=== PATIENT | male | born 1995 | race Caucasian/White ===

== ENCOUNTER 2016-12-06 23:12 | Emergency (ER) | payer OTHER ==
--- NOTE | 2016-12-06 23:59 | EDM.PDOC ---
ED HPI Trauma - General Chief Complaint: Trauma Stated Complaint: FELL AT WORK, LADDER HIT HEAD-WC Time Seen by Provider: 12/06/16 23:45 Source: Reports: Patient History Limitations: Reports: No limitations - History of Present Illness INITIAL COMMENTS - FREE TEXT/NARRATIVE: This 21 yo male patient reports to the ED with right posterior neck and right posterior head pain. 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 He was on a latter (feet were at about 5 feet and his head was at about 10 feet) when he lost his balance and fell to the ground. The patient reports he fell to the ground on his chest with his face down and was hit on the back of the head and neck by the ladder. The patient believes that he may have lost consciousness for "1-2 seconds" after the fall. The patient reports he has pain in hit head, neck and right knee due to the incident. The patient reports he as not taken anything at this time for temporary symptom relief. Symptom Onset Date: 12/06/16 Occurred When: just prior to arrival Occurred Where: work Method of Injury: fall Severity: moderate Pain/Injury Location: Reports: head, neck Consciousness: Reports: brief (seconds), remembers incident, remembers coming to hosp Associated Symptoms: Reports: no other symptoms Allergies/ADRs: Allergies Bleach (Sodium Hypochlorite) Allergy (Verified 12/06/16 23:26) Cannot Remember venom-honey bee [bee venom (honey bee)] Allergy (Verified 09/06/16 22:37) Anaphylactic Shock 09/12/14 patient states "very bad hives" Home Medications: Ambulatory Orders . [No Known Home Meds] 12/14/15 [Confirmed 09/06/16] Past Medical History - Past Health History Medical/Surgical History: Denies Medical/Surgical History HEENT History: Reports: None Cardiovascular History: Reports: Other (see below) Other Cardiovascular History: fluid around heart Respiratory History: Reports: Other (see below) Other Respiratory History: pleurisy hx Gastrointestinal History: Reports: GERD Genitourinary History: Reports: None Musculoskeletal History: Reports: Fracture Other Musculoskeletal History: right knee pain, chronic Neurological History: Reports: Concussion, Seizure Psychiatric History: Reports: Anxiety, Depression Endocrine/Metabolic History: Reports: Other (see below) Other Endocrine/Metabolic History: alopecia Hematologic History: Reports: None Immunologic History: Reports: None Oncologic (Cancer) History: Reports: None Dermatologic History: Reports: Other (see below) Other Dermatologic History: alopecia - Infectious Disease History Infectious Disease History: Reports: None - Past Surgical History Head Surgeries/Procedures: Reports: None HEENT Surgical History: Reports: Tonsillectomy GI Surgical History: Reports: None Male Surgical History: Reports: None Neurological Surgical History: Reports: None Musculoskeletal Surgical History: Reports: None Social & Family History - Family History Family Medical History: Noncontributory - Tobacco Use Smoking Status *Q: Current Every Day Smoker Years of Tobacco use: 8 Packs/Tins Daily: 0.5 Used Tobacco, but Quit: No Month Tobacco Last Used: may Second Hand Smoke Exposure: Yes - Caffeine Use Caffeine Use: Reports: None - Alcohol Use Days Per Week of Alcohol Use: 7 Number of Drinks Per Day: 1 Total Drinks Per Week: 7 - Recreational Drug Use Recreational Drug Use: No Recreational Drug Type: Reports: Marijuana/Hashish - Living Situation & Occupation Living situation: Reports: single, with family Occupation: student Review of Systems - Review of Systems Review Of Systems: See Below Constitutional: Reports: no symptoms Eyes: Reports: no symptoms Ears: Reports: no symptoms Nose: Reports: no symptoms Mouth/Throat: Reports: no symptoms Respiratory: Reports: no symptoms Cardiovascular: Reports: no symptoms GI/Abdominal: Reports: No symptoms Genitourinary: Reports: no symptoms Musculoskeletal: Reports: neck pain (right posterior neck), other (right posterior head) Skin: Reports: no symptoms Neurological: Reports: no symptoms Psychiatric: Reports: no symptoms ED EXAM, TRAUMA (MAJOR/MULTI) - Physical Exam Exam: See Below Exam Limited By: No limitations General Appearance: alert, WD/WN, moderate distress Head: scalp tenderness (right posterior scalp) Eyes: bilateral eye: EOMI, normal inspection, PERRL Ears: normal external exam, normal canal, hearing grossly normal, normal TMs Nose: normal inspection, normal mucousa, no blood Throat/Mouth: Normal inspection, Normal lips, Normal teeth, Normal gums, Normal oropharynx, Normal voice, No airway compromise Neck: painful range of motion, tenderness (right posterior) Cardiovascular: normal peripheral pulses, regular rate, rhythm, no edema, no gallop, no JVD, no murmur, no rub Respiratory/Chest: no respiratory distress, lungs clear, normal breath sounds, no accessory muscle use, chest non-tender GI/Abdominal: normal bowel sounds, soft, non tender, no organomegaly, no distention, no abnormal bruit, no mass (Male) Exam: Deferred Rectal (Males) Exam: Deferred Back: full range of motion, normal inspection Extremities: other (abrasion below right knee) 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, no motor/sensory deficits, alert, normal mood/affect, oriented x 3 Skin: Normal color, Warm/dry - [place] Coma Score Best Eye Response ([place]): (4) open spontaneously Best Verbal Response ([place]): (5) oriented Best Motor Response ([place]): (6) obeys commands [place] Total: 15 Course - Orders/Labs/Meds Orders: Active Orders 24 hr Category Date Time Status Cervical Spine wo Cont [CT] Urgent Exams 12/06/16 23:26 Taken Head wo Cont [CT] Urgent Exams 12/06/16 23:26 Taken Ketorolac [Toradol] Med 12/07/16 00:15 Once 60 mg IM ONETIME ONE Departure - Departure Time of Disposition: 00:15 Disposition: Home, Self-Care 01 Condition: fair Clinical Impression: Contusion of face, scalp and neck Qualifiers: Encounter type: initial encounter Qualified Code(s): S00.83XA - Contusion of other part of head, initial encounter; S00.03XA - Contusion of scalp, initial encounter; S10.93XA - Contusion of unspecified part of neck, initial encounter Instructions: Contusion, [id number] Forms: ED Department Discharge Care Plan Goals: The patient was advised of the examination and CT results during the visit. The patient was given an injection of Toradol while in the ED for pain control. The patient may take Tylenol as directed for temporary symptom relief. If the patient has any additional symptoms or concerns, the patient should follow-up with his primary care facility or return to the emergency department. - My Orders Last 24 Hours: My Active Orders 12/06/16 23:26 Cervical Spine wo Cont [CT] Urgent Head wo Cont [CT] Urgent 12/07/16 00:15 Ketorolac [Toradol] 60 mg IM ONETIME ONE - Assessment/Plan Last 24 Hours: My Active Orders 12/06/16 23:26 Cervical Spine wo Cont [CT] Urgent Head wo Cont [CT] Urgent 12/07/16 00:15 Ketorolac [Toradol] 60 mg IM ONETIME ONE
[2016-12-07] MEDS ORDERED: Ketorolac 30 MG/ML SDV IM ONE (00:15)
--- NOTE | 2016-12-07 08:11 | CT ---
Clinical history: 21-year-old male who experienced loss of consciousness and now neck pain after a f all onto cement (5-10 feet). TECHNIQUE: Volume acquisition of data emergency unenhanced CT scan of the cervical spine obtained wi th the patient lying supine on the Siemens multi slice CT scanner [place], [place]. All data archived in the PACS system for storage, reformatting axial/sagittal/coronal planes and study. Interpretation: Negative exam. Homogeneous normal bone density and normal height/alignment of the 7 cervical vertebrae. No sign of congenital abnormality or of pathologic skeletal lesion. No prevertebral soft tissue swelling, cervical fracture, spondylolisthesis or abnormal intervertebra l disc space narrowing. No hypertrophic arthritic spurring. Medial clavicles unremarkable. Lung apices are clear.
== END 2016-12-07 00:43 | disposition home or self-care (01) ==
LOC: DL.ED 23:12
DX: S00.83XA Contusion of other part of head, initial encounter (principal); W11.XXXA Fall on and from ladder, initial encounter; Z91.030 Bee allergy status; Z91.048 Other nonmedicinal substance allergy status; K21.9 Gastro-esophageal reflux disease without esophagitis; M54.2 Cervicalgia
CPT/HCPCS: 70450; 72125; 96372; 99284; J1885

== ENCOUNTER 2017-04-19 15:15 | Emergency (ER) | payer OTHER ==
[2017-04-19] MEDS ORDERED: methylPREDNISolone Sodium Succinate 125 MG/2 ML SDV IVPUSH ONE (15:20)
[2017-04-19] MEDS ORDERED: diphenhydrAMINE 50 MG/ML SDV IVPUSH ONE (15:20)
[2017-04-19 15:24] VITALS: BP 116/80
--- NOTE | 2017-04-19 15:49 | EDM.PDOC ---
ED HPI GENERAL MEDICAL PROBLEM - General Stated Complaint: ALLERGIC REACTION TO BEE STING, [id number] Time Seen by Provider: 04/19/17 15:35 Source of Information: Reports: Patient History Limitations: Reports: No Limitations - History of Present Illness INITIAL COMMENTS - FREE TEXT/NARRATIVE: This 21 yo male patient reports to the ED with a bee sting to his left thumb. After the bee sting, the patient reports experiencing difficulties breathing. The patient reports he used to have an epi pen, but it . The patient has not taken anything at this time. Onset: Today Onset Date: 04/19/17 Onset Time: 15:00 Duration: Constant Location: Reports: Neck Quality: Reports: Dull, Pressure Severity: Moderate Improves with: Reports: None Worsens with: Reports: None Associated Symptoms: Reports: No Other Symptoms Throat Pain Score (Numeric/FACES): 4 - Related Data Allergies Allergy/AdvReac Type Severity Reaction Status Date / Time Bleach (Sodium Hypochlorite) Allergy Cannot Verified 04/19/17 15:36 Remember venom-honey bee Allergy Anaphylactic Verified 04/19/17 15:36 [bee venom (honey bee)] Shock Home Meds: Home Meds . [No Known Home Meds] 12/14/15 [History] Past Medical History - Past Health History Medical/Surgical History: Denies Medical/Surgical History HEENT History: Reports: None Cardiovascular History: Reports: Other (See Below) Other Cardiovascular History: fluid around heart Respiratory History: Reports: Other (See Below) Other Respiratory History: pleurisy hx Gastrointestinal History: Reports: GERD Genitourinary History: Reports: None Musculoskeletal History: Reports: Fracture Other Musculoskeletal History: right knee pain, chronic Neurological History: Reports: Concussion, Seizure Psychiatric History: Reports: Anxiety, Depression Endocrine/Metabolic History: Reports: Other (See Below) Other Endocrine/Metabolic History: alopecia Hematologic History: Reports: None Immunologic History: Reports: None Oncologic (Cancer) History: Reports: None Dermatologic History: Reports: Other (See Below) Other Dermatologic History: alopecia - Infectious Disease History Infectious Disease History: Reports: None - Past Surgical History Head Surgeries/Procedures: Reports: None HEENT Surgical History: Reports: Tonsillectomy GI Surgical History: Reports: None Male Surgical History: Reports: None Neurological Surgical History: Reports: None Musculoskeletal Surgical History: Reports: None Social & Family History - Family History Family Medical History: Noncontributory - Tobacco Use Smoking Status *Q: Current Every Day Smoker Years of Tobacco use: 6 Packs/Tins Daily: 1 Used Tobacco, but Quit: No Month Tobacco Last Used: may Second Hand Smoke Exposure: Yes - Caffeine Use Caffeine Use: Reports: Soda - Alcohol Use Days Per Week of Alcohol Use: 2 Number of Drinks Per Day: 5 Total Drinks Per Week: 10 - Recreational Drug Use Recreational Drug Use: No Recreational Drug Type: Reports: Marijuana/Hashish - Living Situation & Occupation Living situation: Reports: Single, with Family Occupation: Student ED ROS ALLERGIC REACTION - Review of Systems Review Of Systems: ROS reveals no pertinent complaints other than HPI. ED EXAM GENERAL NO PERIP PULSE - Physical Exam Exam: See Below Exam Limited By: No Limitations General Appearance: Alert, WD/WN, Anxious, Mild Distress Eye Exam: Bilateral Eye: EOMI, Normal Inspection, PERRL Ears: Normal External Exam, Normal Canal, Hearing Grossly Normal, Normal TMs Nose: Normal Inspection, Normal Mucosa, No Blood Throat/Mouth: Normal Inspection, Normal Lips, Normal Teeth, Normal Gums, Normal Oropharynx, Normal Voice, No Airway Compromise Head: Atraumatic, Normocephalic Neck: Normal Inspection, Supple, Non-Tender, Full Range of Motion Respiratory/Chest: No Respiratory Distress, Lungs Clear, Normal Breath Sounds, No Accessory Muscle Use, Chest Non-Tender Cardiovascular: Normal Peripheral Pulses, Regular Rate, Rhythm, No Edema, No Gallop, No JVD, No Murmur, No Rub GI/Abdominal: Normal Bowel Sounds, Soft, Non-Tender, No Organomegaly, No Distention, No Abnormal Bruit, No Mass (Male) Exam: Deferred Rectal (Males) Exam: Deferred Back Exam: Normal Inspection, Full Range of Motion, NT Extremities: Normal Inspection, Normal Range of Motion, Non-Tender, Normal Capillary Refill, No Pedal Edema Neurological: Alert, Oriented, CN II-XII Intact, Normal Cognition, Normal Gait, Normal Reflexes, No Motor/Sensory Deficits Psychiatric: Normal Affect, Normal Mood Skin Exam: Warm, Dry, Intact, Normal Color, No Rash Lymphatic: No Adenopathy Course - Vital Signs Last Recorded V/S: Last Vital Signs Temp 36.6 C 04/19/17 15:23 Pulse 82 04/19/17 15:23 Resp 18 04/19/17 15:23 BP 116/80 04/19/17 15:23 Pulse Ox 99 04/19/17 15:23 - Orders/Labs/Meds Meds: Medications Discontinued Medications Generic Name Dose Route Start Last Admin Trade Name Stan PRN Reason Stop Dose Admin Diphenhydramine HCl 50 mg 04/19/17 15:20 04/19/17 15:20 Benadryl IVPUSH 04/19/17 15:21 50 mg ONETIME ONE Administration Methylprednisolone Sodium Succinate 125 mg 04/19/17 15:20 04/19/17 15:20 Solu-Medrol IVPUSH 04/19/17 15:21 125 mg ONETIME ONE Administration Departure - Departure Time of Disposition: 15:46 Disposition: Home, Self-Care 01 Condition: Fair Clinical Impression: Bee sting allergy Angio-edema Qualifiers: Encounter type: initial encounter Qualified Code(s): T78.3XXA - Angioneurotic edema, initial encounter - Discharge Information Instructions: Bee, Wasp, or Hornet Sting, Anaphylactic Reaction, Jyek-ld-Afwn Forms: ED Department Discharge Care Plan Goals: The patient was advised of the examination results during the visit. The patient was given IV Benadryl and IV SoluMedrol while in the ED. The patient was discharged with a script for Prednisone (20 mg) #8 to take 2 by mouth daily for 4 days. The patient should follow-up with his primary care care provider for continued evaluation and further treatment. If the patient has any additional symptoms or concerns, the patient should follow-up with her primary care facility or return to the emergency department.
== END 2017-04-19 15:57 | disposition home or self-care (01) ==
LOC: DL.ED 15:15
DX: T63.441A Toxic effect of venom of bees, accidental (unintentional), initial encounter (principal); T78.3XXA Angioneurotic edema, initial encounter; Z91.030 Bee allergy status; K21.9 Gastro-esophageal reflux disease without esophagitis; Z98.890 Other specified postprocedural states; F17.210 Nicotine dependence, cigarettes, uncomplicated
CPT/HCPCS: 96374; 96375; 99282; J1200; J2930

== ENCOUNTER 2017-06-27 00:58 | Emergency (ER) | payer OTHER ==
[2017-06-27 01:13] VITALS: BP 132/74
[2017-06-27] MEDS ORDERED: GI Cocktail Oral Solution 30 ML PO ONE (01:17)
--- NOTE | 2017-06-27 01:19 | EDM.PDOC ---
ED HPI GENERAL MEDICAL PROBLEM - General Chief Complaint: Gastrointestinal Problem Stated Complaint: CHEST PAINS [id number] Time Seen by Provider: 06/27/17 01:17 Source of Information: Reports: Patient History Limitations: Reports: No Limitations - History of Present Illness INITIAL COMMENTS - FREE TEXT/NARRATIVE: 2 hours h/o epiG pain, was watching Tv. ate nothing prior. Epigastric Pain Score (Numeric/FACES): 6 - Related Data Allergies Allergy/AdvReac Type Severity Reaction Status Date / Time Bleach (Sodium Hypochlorite) Allergy Cannot Verified 06/27/17 01:09 Remember venom-honey bee Allergy Anaphylactic Verified 06/27/17 01:09 [bee venom (honey bee)] Shock Home Meds: Home Meds QUEtiapine [SEROquel] 1 tab PO BEDTIME 06/27/17 [History] Past Medical History - Past Health History Medical/Surgical History: Denies Medical/Surgical History HEENT History: Reports: None Cardiovascular History: Reports: Other (See Below) Other Cardiovascular History: fluid around heart Respiratory History: Reports: Other (See Below) Other Respiratory History: pleurisy hx Gastrointestinal History: Reports: GERD Genitourinary History: Reports: None Musculoskeletal History: Reports: Fracture Other Musculoskeletal History: right knee pain, chronic Neurological History: Reports: Concussion, Seizure Psychiatric History: Reports: Anxiety, Depression Endocrine/Metabolic History: Reports: Other (See Below) Other Endocrine/Metabolic History: alopecia Hematologic History: Reports: None Immunologic History: Reports: None Oncologic (Cancer) History: Reports: None Dermatologic History: Reports: Other (See Below) Other Dermatologic History: alopecia - Infectious Disease History Infectious Disease History: Reports: None - Past Surgical History Head Surgeries/Procedures: Reports: None HEENT Surgical History: Reports: Tonsillectomy GI Surgical History: Reports: None Male Surgical History: Reports: None Neurological Surgical History: Reports: None Musculoskeletal Surgical History: Reports: None Social & Family History - Family History Family Medical History: Noncontributory - Tobacco Use Smoking Status *Q: Current Every Day Smoker Years of Tobacco use: 7 Packs/Tins Daily: 0.5 Used Tobacco, but Quit: No Month Tobacco Last Used: may Second Hand Smoke Exposure: No - Caffeine Use Caffeine Use: Reports: Coffee, Soda - Alcohol Use Days Per Week of Alcohol Use: 2 Number of Drinks Per Day: 5 Total Drinks Per Week: 10 - Recreational Drug Use Recreational Drug Use: No Recreational Drug Type: Reports: Marijuana/Hashish - Living Situation & Occupation Living situation: Reports: Single, with Family Occupation: Student ED ROS GENERAL - Review of Systems Review Of Systems: ROS reveals no pertinent complaints other than HPI. ED EXAM, GI/ABD - Physical Exam Exam: See Below Exam Limited By: No Limitations General Appearance: Alert, WD/WN, Mild Distress, Other (discomfort) Ears: Hearing Grossly Normal Throat/Mouth: Normal Voice, No Airway Compromise Head: Atraumatic Neck: Non-Tender, Full Range of Motion Respiratory/Chest: No Respiratory Distress Cardiovascular: Regular Rate, Rhythm GI/Abdominal Exam: Soft, Tender, Other (epiG region). No: Distended, Guarding, Rigid, Rebound Neurological: Alert, Oriented, Normal Cognition, Normal Gait, No Motor/Sensory Deficits Psychiatric: Tearful Skin Exam: Warm, Dry, Normal Color Lymphatic: No Adenopathy Course - Vital Signs Last Recorded V/S: Last Vital Signs Temp 36.8 C 06/27/17 01:12 Pulse 108 H 06/27/17 01:12 Resp 18 06/27/17 01:12 BP 132/74 06/27/17 01:12 Pulse Ox 100 06/27/17 01:12 - Orders/Labs/Meds Orders: Active Orders 24 hr Category Date Time Status CULTURE STREP A CONFIRMATION [] Stat Lab 06/27/17 01:38 Results STREP SCRN A RAPID W CULT CONF [] Stat Lab 06/27/17 01:38 Results Meds: Medications Discontinued Medications Generic Name Dose Route Start Last Admin Trade Name Corkyq PRN Reason Stop Dose Admin Al Hydroxide/Mg Hydroxide 30 ml 06/27/17 01:17 06/27/17 01:29 Gi Cocktail PO 06/27/17 01:18 30 ml ONETIME ONE Administration - Re-Assessments/Exams Free Text/Narrative Re-Assessment/Exam: 06/27/17 01:41 s/p GI cocktail = minimal, but c/o feeling shaky chills flu like. Departure - Departure Time of Disposition: 02:29 Disposition: Home, Self-Care 01 Condition: Good Clinical Impression: Flu syndrome - Discharge Information Instructions: Influenza, Adult, [id number] Forms: ED Department Discharge Additional Instructions: 1) rest and sleep 2) take tylenol or motrin for fever and body aches - My Orders Last 24 Hours: My Active Orders 06/27/17 01:38 CULTURE STREP A CONFIRMATION [RM] Stat STREP SCRN A RAPID W CULT CONF [] Stat - Assessment/Plan Last 24 Hours: My Active Orders 06/27/17 01:38 CULTURE STREP A CONFIRMATION [RM] Stat STREP SCRN A RAPID W CULT CONF [RM] Stat
== END 2017-06-27 02:36 | disposition home or self-care (01) ==
LOC: DL.ED 00:58
DX: J11.1 Influenza due to unidentified influenza virus with other respiratory manifestations (principal); K21.9 Gastro-esophageal reflux disease without esophagitis; F32.9 Major depressive disorder, single episode, unspecified; F17.210 Nicotine dependence, cigarettes, uncomplicated; Z98.890 Other specified postprocedural states; Z91.030 Bee allergy status; Z91.048 Other nonmedicinal substance allergy status
CPT/HCPCS: 87081; 87430; 87804; 99284; A9270; 99283

== ENCOUNTER 2017-07-24 18:48 | Emergency (ER) | payer SELFPAY ==
[2017-07-24 19:00] VITALS: BP 121/73
--- NOTE | 2017-07-24 19:25 | EDM.PDOC ---
ED HPI GENERAL MEDICAL PROBLEM - General Chief Complaint: Genitourinary Problem Stated Complaint: BLOOD IN URINE AND UPSET STOMACH [id number] Time Seen by Provider: 07/24/17 19:14 Source of Information: Reports: Patient History Limitations: Reports: No Limitations - History of Present Illness INITIAL COMMENTS - FREE TEXT/NARRATIVE: c/o urgency all day. had bilat flank pain for awhile. Bilateral Lower Flank Pain Score (Numeric/FACES): 5 - Related Data Allergies Allergy/AdvReac Type Severity Reaction Status Date / Time Bleach (Sodium Hypochlorite) Allergy Cannot Verified 07/24/17 18:56 Remember venom-honey bee Allergy Anaphylactic Verified 07/24/17 18:56 [bee venom (honey bee)] Shock Home Meds: Home Meds QUEtiapine [SEROquel] 1 tab PO BEDTIME 06/27/17 [History] Amoxicillin/Potassium Clav [Amox-Clav 250-125 mg Tablet] 1 tab PO BID 07/24/17 [ History] Past Medical History - Past Health History Medical/Surgical History: Denies Medical/Surgical History HEENT History: Reports: None Cardiovascular History: Reports: Other (See Below) Other Cardiovascular History: fluid around heart Respiratory History: Reports: Other (See Below) Other Respiratory History: pleurisy hx Gastrointestinal History: Reports: GERD Genitourinary History: Reports: None Musculoskeletal History: Reports: Fracture Other Musculoskeletal History: right knee pain, chronic Neurological History: Reports: Concussion, Seizure Psychiatric History: Reports: Anxiety, Depression Endocrine/Metabolic History: Reports: Other (See Below) Other Endocrine/Metabolic History: alopecia Hematologic History: Reports: None Immunologic History: Reports: None Oncologic (Cancer) History: Reports: None Dermatologic History: Reports: Other (See Below) Other Dermatologic History: alopecia - Infectious Disease History Infectious Disease History: Reports: None - Past Surgical History Head Surgeries/Procedures: Reports: None HEENT Surgical History: Reports: Tonsillectomy GI Surgical History: Reports: None Male Surgical History: Reports: None Neurological Surgical History: Reports: None Musculoskeletal Surgical History: Reports: None Social & Family History - Family History Family Medical History: Noncontributory - Tobacco Use Smoking Status *Q: Current Every Day Smoker Years of Tobacco use: 7 Packs/Tins Daily: 1 Used Tobacco, but Quit: No Month Tobacco Last Used: may Second Hand Smoke Exposure: Yes - Caffeine Use Caffeine Use: Reports: Soda Caffeine Use Comment: states occassional usage - Alcohol Use Days Per Week of Alcohol Use: 2 Number of Drinks Per Day: 5 Total Drinks Per Week: 10 - Recreational Drug Use Recreational Drug Use: No Recreational Drug Type: Reports: Marijuana/Hashish - Living Situation & Occupation Living situation: Reports: Single, with Family Occupation: Student ED ROS GENERAL - Review of Systems Review Of Systems: ROS reveals no pertinent complaints other than HPI. ED EXAM, RENAL/ - Physical Exam Exam: See Below Exam Limited By: No Limitations General Appearance: Alert, WD/WN, Anxious, Other (distraught) Eye Exam: Bilateral Eye: PERRL (pupils ER @ 4mm) Ears: Hearing Grossly Normal Throat/Mouth: Normal Voice, No Airway Compromise Head: Atraumatic Neck: Non-Tender, Full Range of Motion Respiratory/Chest: No Respiratory Distress Cardiovascular: Regular Rate, Rhythm GI/Abdominal: Soft, Tender, Other (general discomfort). No: Distended, Guarding , Rigid, Rebound Neurological: Alert, Oriented, Normal Cognition, Normal Gait, No Motor/Sensory Deficits Psychiatric: Flat Affect Skin Exam: Warm, Dry, Normal Color Lymphatic: No Adenopathy Course - Vital Signs Last Recorded V/S: Last Vital Signs Temp 37.6 C 07/24/17 18:58 Pulse 107 H 07/24/17 18:58 Resp 20 07/24/17 18:58 BP 121/73 07/24/17 18:58 Pulse Ox 97 07/24/17 18:58 - Orders/Labs/Meds Labs: Laboratory Tests 07/24/17 Range/Units 18:52 Urine Color Dark yellow (YELLOW) Urine Appearance Slightly cloudy (CLEAR) Urine pH 6.0 (5.0-9.0) Ur Specific [place] 1.025 (1.005-1.030) Urine Protein 30 H (NEGATIVE) Urine Glucose (UA) Negative (NEGATIVE) Urine Ketones Trace H (NEGATIVE) Urine Occult Blood Negative (NEGATIVE) Urine Nitrite Negative (NEGATIVE) Urine Bilirubin Small H (NEGATIVE) Urine Urobilinogen 1.0 (0.2-1.0) mg/dL Ur Leukocyte Esterase Negative (NEGATIVE) Urine RBC 0-5 /HPF Urine WBC 5-10 H (0-5/HPF) /HPF Ur Epithelial Cells Rare /HPF Urine Bacteria Moderate H (0-FEW/HPF) /HPF Urine Mucus Many H /LPF - Re-Assessments/Exams Free Text/Narrative Re-Assessment/Exam: 07/24/17 19:25 results discussed with pt. Departure - Departure Time of Disposition: 19:26 Disposition: Home, Self-Care 01 Condition: Good Clinical Impression: UTI, Urinary tract infectious disease - Discharge Information Instructions: Urinary Tract Infection, Adult, [id number] Additional Instructions: 1) stop the current antibiotic and take the new one 2) drink lots of liquids 3) see clinic Wednesday for UROLOGY REFERRAL for UTI. rx given; keflex 250mg qid x 40
[2017-07-24] MEDS ORDERED: Cephalexin 250 MG Cap PO ONE (19:26)
== END 2017-07-24 19:36 | disposition home or self-care (01) ==
LOC: DL.ED 18:48
DX: N39.0 Urinary tract infection, site not specified (principal); K21.9 Gastro-esophageal reflux disease without esophagitis; F17.210 Nicotine dependence, cigarettes, uncomplicated; Z91.030 Bee allergy status; Z91.048 Other nonmedicinal substance allergy status
CPT/HCPCS: 81001; 99283; A9270

== ENCOUNTER 2018-04-24 01:02 | Emergency (ER) | payer BC, OTHER ==
--- NOTE | 2018-04-24 01:12 | EDM.PDOC ---
ED HPI GENERAL MEDICAL PROBLEM - General Chief Complaint: Upper Extremity Injury/Pain Stated Complaint: POSSIBLE BROKEN ARM [id number] Time Seen by Provider: 04/24/18 01:10 Source of Information: Reports: Patient History Limitations: Reports: No Limitations - History of Present Illness INITIAL COMMENTS - FREE TEXT/NARRATIVE: hit by the bar door tonight Right Lower Arm Pain Score (Numeric/FACES): 6 - Related Data Allergies Allergy/AdvReac Type Severity Reaction Status Date / Time Bleach (Sodium Hypochlorite) Allergy Cannot Verified 07/24/17 18:56 Remember venom-honey bee Allergy Anaphylactic Verified 07/24/17 18:56 [bee venom (honey bee)] Shock Home Meds: Home Meds . [No Known Home Meds] 02/04/18 [History] Past Medical History - Past Health History Medical/Surgical History: Denies Medical/Surgical History HEENT History: Reports: None Cardiovascular History: Reports: Other (See Below) Other Cardiovascular History: fluid around heart Respiratory History: Reports: Other (See Below) Other Respiratory History: pleurisy hx Gastrointestinal History: Reports: GERD Genitourinary History: Reports: None Musculoskeletal History: Reports: Fracture Other Musculoskeletal History: right knee pain, chronic Neurological History: Reports: Concussion, Seizure Psychiatric History: Reports: Anxiety, Depression Endocrine/Metabolic History: Reports: Other (See Below) Other Endocrine/Metabolic History: alopecia Hematologic History: Reports: None Immunologic History: Reports: None Oncologic (Cancer) History: Reports: None Dermatologic History: Reports: Other (See Below) Other Dermatologic History: alopecia - Infectious Disease History Infectious Disease History: Reports: None - Past Surgical History Head Surgeries/Procedures: Reports: None HEENT Surgical History: Reports: Tonsillectomy GI Surgical History: Reports: None Male Surgical History: Reports: None Neurological Surgical History: Reports: None Musculoskeletal Surgical History: Reports: None Social & Family History - Family History Family Medical History: Noncontributory - Caffeine Use Caffeine Use: Reports: Soda Caffeine Use Comment: states occassional usage - Living Situation & Occupation Living situation: Reports: Single, with Family Occupation: Student Review of Systems - Review of Systems Review Of Systems: ROS reveals no pertinent complaints other than HPI. ED EXAM, GENERAL - Physical Exam Exam: See Below Exam Limited By: No Limitations General Appearance: Alert, WD/WN, No Apparent Distress Ears: Hearing Grossly Normal Throat/Mouth: Normal Voice, No Airway Compromise Head: Atraumatic Neck: Non-Tender, Full Range of Motion Respiratory/Chest: No Respiratory Distress Cardiovascular: Regular Rate, Rhythm GI/Abdominal: Soft, Non-Tender Extremities: Other (right forearm tender swollen, NV wnl) Neurological: Alert, Oriented, Normal Cognition, Normal Gait, No Motor/Sensory Deficits Psychiatric: Normal Affect, Normal Mood Skin Exam: Warm, Dry, Normal Color Lymphatic: No Adenopathy Course - Vital Signs Last Recorded V/S: Last Vital Signs Temp 37.2 C 04/24/18 01:09 Pulse 106 H 04/24/18 01:09 Resp 18 04/24/18 01:09 BP 137/74 04/24/18 01:09 Pulse Ox 98 04/24/18 01:09 - Orders/Labs/Meds Orders: Active Orders 24 hr Category Date Time Status Forearm 2V Rt [CR] Urgent Exams 04/24/18 01:12 Ordered Departure - Departure Time of Disposition: 02:55 Disposition: Home, Self-Care 01 Condition: Good Clinical Impression: Forearm contusion Qualifiers: Encounter type: initial encounter Laterality: right Qualified Code(s): S50.11XA - Contusion of right forearm, initial encounter - Discharge Information Instructions: Contusion, [id number] Forms: ED Department Discharge Additional Instructions: 1) avoid excess use right arm next 24 hours 2) take tylenol or motrin as needed for pain 3) recheck as needed - My Orders Last 24 Hours: My Active Orders 04/24/18 01:12 Forearm 2V Rt [CR] Urgent - Assessment/Plan Last 24 Hours: My Active Orders 04/24/18 01:12 Forearm 2V Rt [CR] Urgent
[2018-04-24 01:20] VITALS: BP 137/74
== END 2018-04-24 03:05 | disposition home or self-care (01) ==
LOC: DL.ED 01:02
DX: S50.11XA Contusion of right forearm, initial encounter (principal); Z91.030 Bee allergy status; Z88.8 Allergy status to other drugs, medicaments and biological substances; W22.8XXA Striking against or struck by other objects, initial encounter
CPT/HCPCS: 73090-RT; 99283

== ENCOUNTER 2018-06-13 22:12 | Emergency (ER) | payer SELFPAY | END 2018-06-13 22:54 | disposition left against medical advice (07) | LOC: DL.ED 22:12 | DX: Z53.21 Procedure and treatment not carried out due to patient leaving prior to being seen by health care provider (principal) ==

== ENCOUNTER 2018-10-14 07:12 | Emergency (ER) | payer BC ==
[2018-10-14 07:56] VITALS: BP 131/75
--- NOTE | 2018-10-14 08:14 | EDM.PDOC ---
ED HPI GENERAL MEDICAL PROBLEM - General Chief Complaint: ENT Problem Stated Complaint: SICK [id number] Time Seen by Provider: 10/14/18 08:10 Source of Information: Reports: Patient, RN, RN Notes Reviewed History Limitations: Reports: No Limitations - History of Present Illness INITIAL COMMENTS - FREE TEXT/NARRATIVE: Pt c/o sore throat x3 weeks with 1 weeks duration of subjective fever and chills. Admits to plugged ears and muffled hearing, dry cough, and sinus pain x 3 weeks. Pt states he has had "sinus headaches" for about 2 months. His roommate tested positive for strep throat yesterday. Duration: Week(s): (3) Location: Reports: Other (Throat) Quality: Reports: Ache, Burning Severity: Moderate Improves with: Reports: None Worsens with: Reports: None Associated Symptoms: Reports: No Other Symptoms Throat Pain Score (Numeric/FACES): 5 - Related Data Allergies Allergy/AdvReac Type Severity Reaction Status Date / Time Bleach (Sodium Hypochlorite) Allergy Cannot Verified 10/14/18 07:54 Remember hydrocodone Allergy Nausea Verified 10/14/18 07:54 venom-honey bee Allergy Anaphylactic Verified 10/14/18 07:54 [bee venom (honey bee)] Shock Home Meds: Home Meds . [No Known Home Meds] 02/04/18 [History] Past Medical History - Past Health History Medical/Surgical History: Denies Medical/Surgical History HEENT History: Reports: None Cardiovascular History: Reports: Other (See Below) Other Cardiovascular History: fluid around heart Respiratory History: Reports: Other (See Below) Other Respiratory History: pleurisy hx Gastrointestinal History: Reports: GERD Genitourinary History: Reports: None Musculoskeletal History: Reports: Fracture Other Musculoskeletal History: right knee pain, chronic Neurological History: Reports: Concussion, Seizure Psychiatric History: Reports: Anxiety, Depression Endocrine/Metabolic History: Reports: Obesity/BMI 30+, Other (See Below) Other Endocrine/Metabolic History: alopecia Hematologic History: Reports: None Immunologic History: Reports: None Oncologic (Cancer) History: Reports: None Dermatologic History: Reports: Other (See Below) Other Dermatologic History: alopecia - Infectious Disease History Infectious Disease History: Reports: None - Past Surgical History Head Surgeries/Procedures: Reports: None HEENT Surgical History: Reports: Tonsillectomy GI Surgical History: Reports: None Male Surgical History: Reports: None Neurological Surgical History: Reports: None Musculoskeletal Surgical History: Reports: None Social & Family History - Family History Family Medical History: Noncontributory - Tobacco Use Smoking Status *Q: Current Every Day Smoker Years of Tobacco use: 6 Packs/Tins Daily: 1 - Caffeine Use Caffeine Use: Reports: Coffee, Energy Drinks, Soda, Tea Caffeine Use Comment: states occassional usage - Recreational Drug Use Recreational Drug Use: No - Living Situation & Occupation Living situation: Reports: Single, with Family Occupation: Student ED ROS ENT - Review of Systems Review Of Systems: ROS reveals no pertinent complaints other than HPI. ED EXAM, ENT - Physical Exam Exam: See Below Exam Limited By: No Limitations General Appearance: Alert, WD/WN, No Apparent Distress Eye Exam: Bilateral Eye: Normal Inspection Ears: Normal External Exam, Normal Canal, Hearing Grossly Normal, TM Dullness (B /L) Nose: Normal Mucousa, No Blood, Nasal Discharge, Injected Turbinates Mouth/Throat: Normal Gums, Normal Lips, Normal Teeth, Pharyngeal Erythema. No: Tonsillar Exudates, Tonsillar Swelling, Uvular Deviation, Uvular Edema Head: Atraumatic, Normocephalic Neck: Normal Inspection, Supple, Non-Tender, Full Range of Motion Respiratory/Chest: No Respiratory Distress, Lungs Clear, Normal Breath Sounds, No Accessory Muscle Use, Chest Non-Tender Cardiovascular: Regular Rate, Rhythm GI/Abdominal: Normal Bowel Sounds, Soft, Non-Tender, No Distention Back: Normal Inspection Extremities: Normal Inspection Neurological: Alert, Oriented, CN II-XII Intact, Normal Cognition, No Motor/ Sensory Deficits Psychiatric: Normal Affect, Normal Mood Skin: Warm, Dry, Intact, Normal Color, No Rash Course - Vital Signs Last Recorded V/S: Last Vital Signs Temp 36.4 C 10/14/18 07:54 Pulse 98 10/14/18 07:54 Resp 16 10/14/18 07:54 BP 131/75 10/14/18 07:54 Pulse Ox 97 10/14/18 07:54 - Orders/Labs/Meds Orders: Active Orders 24 hr Category Date Time Status CULTURE STREP A CONFIRMATION [] Stat Lab 10/14/18 07:50 Results STREP SCRN A RAPID W CULT CONF [RM] Stat Lab 10/14/18 07:50 Results - Radiology Interpretation Free Text/Narrative:: Rapid Strep: negative Departure - Departure Time of Disposition: 08:27 Disposition: Home, Self-Care 01 Condition: Good Clinical Impression: Sinusitis Qualifiers: Sinusitis location: pansinusitis Chronicity: acute Recurrence: non-recurrent Qualified Code(s): J01.40 - Acute pansinusitis, unspecified Pharyngitis Qualifiers: Pharyngitis/tonsillitis etiology: other specified organisms Qualified Code(s): J02.8 - Acute pharyngitis due to other specified organisms - Discharge Information *PRESCRIPTION DRUG MONITORING PROGRAM REVIEWED*: Not Applicable *COPY OF PRESCRIPTION DRUG MONITORING REPORT IN PATIENT TASHI: Not Applicable Instructions: Sinusitis, Adult, Yzvo-[id number], Pharyngitis, [id number] Forms: ED Department Discharge Additional Instructions: Rx: Amoxicillin 500mg Rx: Loratadine D-24HR Frequent saltwater gargles until improved. Follow up in clinic if not better in one week. - My Orders Last 24 Hours: My Active Orders 10/14/18 07:50 CULTURE STREP A CONFIRMATION [RM] Stat STREP SCRN A RAPID W CULT CONF [RM] Stat - Assessment/Plan Last 24 Hours: My Active Orders 10/14/18 07:50 CULTURE STREP A CONFIRMATION [RM] Stat STREP SCRN A RAPID W CULT CONF [RM] Stat
== END 2018-10-14 08:34 | disposition home or self-care (01) ==
LOC: DL.ED 07:12
DX: J01.40 Acute pansinusitis, unspecified (principal); J02.8 Acute pharyngitis due to other specified organisms; F17.210 Nicotine dependence, cigarettes, uncomplicated; Z88.5 Allergy status to narcotic agent; Z91.030 Bee allergy status; Z91.09 Other allergy status, other than to drugs and biological substances
CPT/HCPCS: 87081; 87430; 99283

== ENCOUNTER 2019-01-29 20:23 | Emergency (ER) | payer SELFPAY ==
[2019-01-29] MEDS ORDERED: Sodium Chloride 0.9% 1,000 ML IV ONE (20:33)
[2019-01-29] MEDS ORDERED: Ondansetron 4 MG/2 ML SDV IV ONE (20:33)
--- NOTE | 2019-01-29 20:37 | EDM.PDOC ---
ED HPI GENERAL MEDICAL PROBLEM - General Chief Complaint: Gastrointestinal Problem Stated Complaint: THROWING UP- STOMACH PAINS Time Seen by Provider: 01/29/19 20:35 Source of Information: Reports: Patient History Limitations: Reports: No Limitations - History of Present Illness INITIAL COMMENTS - FREE TEXT/NARRATIVE: sudden onset retching vomiting and no diarrhoea [employer]. ate prime rib at casino ~ 4pm. ate meat loaf and fine. Abdominal Pain Score (Numeric/FACES): 7 - Related Data Allergies Allergy/AdvReac Type Severity Reaction Status Date / Time Bleach (Sodium Hypochlorite) Allergy Cannot Verified 01/29/19 20:30 Remember hydrocodone Allergy Nausea Verified 01/29/19 20:30 venom-honey bee Allergy Anaphylactic Verified 01/29/19 20:30 [bee venom (honey bee)] Shock Home Meds: Home Meds . [No Known Home Meds] 02/04/18 [History] Past Medical History - Past Health History Medical/Surgical History: Denies Medical/Surgical History HEENT History: Reports: None Cardiovascular History: Reports: Other (See Below) Other Cardiovascular History: fluid around heart Respiratory History: Reports: Other (See Below) Other Respiratory History: pleurisy hx Gastrointestinal History: Reports: GERD Genitourinary History: Reports: None Musculoskeletal History: Reports: Fracture Other Musculoskeletal History: right knee pain, chronic Neurological History: Reports: Concussion, Seizure Psychiatric History: Reports: Anxiety, Depression Endocrine/Metabolic History: Reports: Obesity/BMI 30+, Other (See Below) Other Endocrine/Metabolic History: alopecia Hematologic History: Reports: None Immunologic History: Reports: None Oncologic (Cancer) History: Reports: None Dermatologic History: Reports: Other (See Below) Other Dermatologic History: alopecia - Infectious Disease History Infectious Disease History: Reports: None - Past Surgical History Head Surgeries/Procedures: Reports: None HEENT Surgical History: Reports: Tonsillectomy GI Surgical History: Reports: None Male Surgical History: Reports: None Neurological Surgical History: Reports: None Musculoskeletal Surgical History: Reports: None Social & Family History - Family History Family Medical History: Noncontributory - Caffeine Use Caffeine Use: Reports: Coffee, Energy Drinks, Soda, Tea Caffeine Use Comment: states occassional usage - Living Situation & Occupation Living situation: Reports: Single, with Family Occupation: Student ED ROS GENERAL - Review of Systems Review Of Systems: ROS reveals no pertinent complaints other than HPI. ED EXAM, GI/ABD - Physical Exam Exam: See Below Exam Limited By: No Limitations General Appearance: Alert, WD/WN, Mild Distress, Active Emesis Ears: Hearing Grossly Normal Throat/Mouth: Normal Voice, No Airway Compromise Head: Atraumatic Neck: Non-Tender, Full Range of Motion Respiratory/Chest: No Respiratory Distress Cardiovascular: Regular Rate, Rhythm GI/Abdominal Exam: Tender, Other (epiG region) Neurological: Alert, Oriented, Normal Cognition, Normal Gait, No Motor/Sensory Deficits Psychiatric: Flat Affect Skin Exam: Warm, Dry, Normal Color Lymphatic: No Adenopathy Course - Vital Signs Last Recorded V/S: Last Vital Signs Temp 36.1 C 01/29/19 20:42 Pulse 100 01/29/19 20:42 Resp 18 01/29/19 20:42 BP 146/89 H 01/29/19 20:42 Pulse Ox 96 01/29/19 20:42 - Orders/Labs/Meds Labs: Laboratory Tests 01/29/19 01/29/19 Range/Units 20:40 20:40 WBC 9.0 (5.0-10.0) 10^3/uL RBC 5.56 (4.6-6.2) 10^6/uL Hgb 16.1 (14.0-18.0) g/dL Hct 47.5 (40.0-54.0) % MCV 85.4 (80-100) fL MCH 29.0 (27.0-34.0) pg MCHC 33.9 (33.0-35.0) g/dL Plt Count 251 (150-450) 10^3/uL Neut % (Auto) 53.4 (42.2-75.2) % Lymph % (Auto) 38.4 (20.5-50.1) % [place] % (Auto) 6.9 (2-8) % Eos % (Auto) 1.1 (1.0-3.0) % Baso % (Auto) 0.2 (0.0-1.0) % Sodium 139 (135-145) mmol/L Potassium 3.6 (3.6-5.0) mmol/L Chloride 105 (101-111) mmol/L Carbon Dioxide 23.0 (21.0-31.0) mmol/L Anion Gap 14.6 BUN 19 H (7-18) mg/dL Creatinine 0.9 (0.6-1.3) mg/dL Est Cr Clr Drug Dosing 140.11 mL/min Estimated GFR (MDRD) > 60 BUN/Creatinine Ratio 21.11 Glucose 81 (74-105) mg/dL Calcium 9.3 (8.4-10.2) mg/dl Total Bilirubin 0.7 (0.2-1.0) mg/dL AST 23 (10-42) IU/L ALT 35 (10-60) IU/L Alkaline Phosphatase 74 (42-121) IU/L Total Protein 7.5 (6.7-8.2) g/dl Albumin 4.4 (3.2-5.5) g/dl Globulin 3.1 Albumin/Globulin Ratio 1.42 Amylase 49 (28-100) U/L Lipase 33 (22-51) U/L Meds: Medications Discontinued Medications Generic Name Dose Route Start Last Admin Trade Name Freq PRN Reason Stop Dose Admin Sodium Chloride 1,000 mls @ 999 mls/hr 01/29/19 20:33 01/29/19 20:51 Normal Saline IV 01/29/19 21:33 999 mls/hr .BOLUS ONE Administration Ketorolac Tromethamine 30 mg 01/29/19 21:33 Toradol IVPUSH 01/29/19 21:34 ONETIME ONE Ondansetron HCl 4 mg 01/29/19 20:33 01/29/19 20:50 Zofran IV 01/29/19 20:34 4 mg ONETIME ONE Administration - Re-Assessments/Exams Free Text/Narrative Re-Assessment/Exam: 01/29/19 21:35 results discussed with pt who is feeling somewhat better. Departure - Departure Time of Disposition: 21:36 Disposition: Home, Self-Care 01 Condition: Good Clinical Impression: Vomiting, Abdominal pain - Discharge Information Instructions: Abdominal Pain, Adult, Erxo-sy-Diln Forms: ED Department Discharge Additional Instructions: 1) avoid solid foods next 48 hours 2) have liquids diet 3) follow up at clinic rx given; bentyl 10mg bid prn cramps x 6 zofran ODT 4mg bid prn nausea x 6
[2019-01-29 20:43] VITALS: BP 146/89
[2019-01-29 21:14] LABS: ANION GAP 14.6; CHLORIDE,CL 105 mmol/L (101-111); SODIUM,NA 139 mmol/L (135-145)
[2019-01-29] MEDS ORDERED: Ketorolac 30 MG/ML SDV IVPUSH ONE (21:33)
== END 2019-01-29 21:54 | disposition home or self-care (01) ==
LOC: DL.ED 20:23
DX: R11.10 Vomiting, unspecified (principal); R10.13 Epigastric pain; Z91.048 Other nonmedicinal substance allergy status; Z88.6 Allergy status to analgesic agent
CPT/HCPCS: 36415; 80053; 82150; 83690; 85025; 96361; 96374; 96375; 99284; J1885; J2405; J7030

== ENCOUNTER 2019-12-27 18:41 | Emergency (ER) | payer BC ==
[2019-12-27 19:13] VITALS: BP 125/62; PULSE 80
[2019-12-27 20:03] LABS: ANION GAP 15.7 mEq/L (7-13); CHLORIDE,CL 106 mmol/L (98-107); SODIUM,NA 145 mmol/L (136-145)
--- NOTE | 2019-12-27 20:26 | EDM.PDOC ---
ED HPI GENERAL MEDICAL PROBLEM - General Chief Complaint: Abdominal Pain Stated Complaint: APENDICITIS,2 DAYS ON AND OFF, LEFT SHOULDER PAIN Time Seen by Provider: 12/27/19 19:10 Source of Information: Reports: Patient History Limitations: Reports: No Limitations - History of Present Illness INITIAL COMMENTS - FREE TEXT/NARRATIVE: ED with c/o RLQ abdominal pain x 2 days, nausea, no vomiting, pain intermittent. No diarrhea. BM today. Treatments FACTORER: Reports: NSAIDS Right Upper Abdominal Pain Score (Numeric/FACES): 7 - Related Data Allergies Allergy/AdvReac Type Severity Reaction Status Date / Time Bleach (Sodium Hypochlorite) Allergy Cannot Verified 01/29/19 20:30 Remember hydrocodone Allergy Nausea Verified 01/29/19 20:30 venom-honey bee Allergy Anaphylactic Verified 01/29/19 20:30 [bee venom (honey bee)] Shock Home Meds: Home Meds . [No Known Home Meds] 02/04/18 [History] Past Medical History - Past Health History Medical/Surgical History: Denies Medical/Surgical History HEENT History: Reports: None Cardiovascular History: Reports: Other (See Below) Other Cardiovascular History: fluid around heart Respiratory History: Reports: Other (See Below) Other Respiratory History: pleurisy hx Gastrointestinal History: Reports: Gastritis, GERD Genitourinary History: Reports: None Musculoskeletal History: Reports: Fracture Other Musculoskeletal History: right knee pain, chronic Neurological History: Reports: Concussion, Seizure Psychiatric History: Reports: Anxiety, Depression Endocrine/Metabolic History: Reports: Obesity/BMI 30+, Other (See Below) Other Endocrine/Metabolic History: alopecia Hematologic History: Reports: None Immunologic History: Reports: None Oncologic (Cancer) History: Reports: None Dermatologic History: Reports: Other (See Below) Other Dermatologic History: alopecia - Infectious Disease History Infectious Disease History: Reports: None - Past Surgical History Head Surgeries/Procedures: Reports: None HEENT Surgical History: Reports: Tonsillectomy GI Surgical History: Reports: None Male Surgical History: Reports: None Neurological Surgical History: Reports: None Musculoskeletal Surgical History: Reports: None Social & Family History - Family History Family Medical History: Noncontributory - Tobacco Use Smoking Status *Q: Current Every Day Smoker Years of Tobacco use: 10 Packs/Tins Daily: 1 Used Tobacco, but Quit: No Second Hand Smoke Exposure: Yes - Caffeine Use Caffeine Use: Reports: Coffee, Energy Drinks, Soda, Tea Caffeine Use Comment: states occassional usage - Recreational Drug Use Recreational Drug Use: No - Living Situation & Occupation Living situation: Reports: Single, with Family Occupation: Student ED ROS GENERAL - Review of Systems Review Of Systems: Comprehensive ROS is negative, except as noted in HPI. ED EXAM, GI/ABD - Physical Exam Exam: See Below Exam Limited By: No Limitations General Appearance: Alert, Mild Distress Ears: Normal External Exam Nose: Normal Inspection Throat/Mouth: Normal Inspection Head: Atraumatic Neck: Normal Inspection Respiratory/Chest: No Respiratory Distress, Lungs Clear, Normal Breath Sounds Cardiovascular: Normal Peripheral Pulses, Regular Rate, Rhythm GI/Abdominal Exam: Tender (general, greater rlq), Abnormal Bowel Sounds ( hyperactive). No: Distended, Guarding Back Exam: Normal Inspection, Full Range of Motion Neurological: Alert, Oriented, Normal Cognition Skin Exam: Warm, Dry, Intact, Normal Color Course - Vital Signs Last Recorded V/S: Last Vital Signs Temp 97.8 F 12/27/19 18:55 Pulse 80 12/27/19 18:55 Resp 18 12/27/19 18:55 BP 125/62 12/27/19 18:55 Pulse Ox 98 12/27/19 18:55 - Orders/Labs/Meds Orders: Active Orders 24 hr Category Date Time Status Abdomen 2V AP Flat Upright [CR] Urgent Exams 12/27/19 19:23 Taken Labs: Laboratory Tests 12/27/19 12/27/19 12/27/19 Range/Units 19:38 19:38 19:38 WBC 8.1 (5.0-10.0) 10^3/uL RBC 5.07 (4.6-6.2) 10^6/uL Hgb 14.7 (14.0-18.0) g/dL Hct 43.8 (40.0-54.0) % MCV 86.4 (80-100) fL MCH 29.0 (27.0-34.0) pg MCHC 33.6 (33.0-35.0) g/dL Plt Count 239 (150-450) 10^3/uL Neut % (Auto) 55.5 (42.2-75.2) % Lymph % (Auto) 35.1 (20.5-50.1) % [place] % (Auto) 7.0 (2-8) % Eos % (Auto) 2.3 (1.0-3.0) % Baso % (Auto) 0.1 (0.0-1.0) % Sodium 145 (136-145) mmol/L Potassium 3.7 (3.5-5.1) mmol/L Chloride 106 (98-107) mmol/L Carbon Dioxide 27 (21-32) mmol/L Anion Gap 15.7 H (7-13) mEq/L BUN 15 (7-18) mg/dL Creatinine 0.95 (0.70-1.30) mg/dL Est Cr Clr Drug Dosing 127.70 mL/min Estimated GFR (MDRD) > 60 BUN/Creatinine Ratio 15.8 (No establ ref range) Glucose 73 L (74-99) mg/dL Lactic Acid 0.7 (0.4-2.0) mmol/L Calcium 8.3 L (8.5-10.1) mg/dL Total Bilirubin 0.2 (0.2-1.0) mg/dL AST 21 (15-37) U/L ALT 59 (16-63) U/L Alkaline Phosphatase 78 (46-116) U/L Total Protein 7.1 (6.4-8.2) g/dL Albumin 4.0 (3.4-5.0) g/dL Globulin 3.1 Albumin/Globulin Ratio 1.3 Urine Color (YELLOW) Urine Appearance (CLEAR) Urine pH (5.0-9.0) Ur Specific [place] (1.005-1.030) Urine Protein (NEGATIVE) Urine Glucose (UA) (NEGATIVE) Urine Ketones (NEGATIVE) Urine Occult Blood (NEGATIVE) Urine Nitrite (NEGATIVE) Urine Bilirubin (NEGATIVE) Urine Urobilinogen (0.2-1.0) mg/dL Ur Leukocyte Esterase (NEGATIVE) /25/20 Range/Units 20:01 WBC (5.0-10.0) 10^3/uL RBC (4.6-6.2) 10^6/uL Hgb (14.0-18.0) g/dL Hct (40.0-54.0) % MCV (80-100) fL MCH (27.0-34.0) pg MCHC (33.0-35.0) g/dL Plt Count (150-450) 10^3/uL Neut % (Auto) (42.2-75.2) % Lymph % (Auto) (20.5-50.1) % [place] % (Auto) (2-8) % Eos % (Auto) (1.0-3.0) % Baso % (Auto) (0.0-1.0) % Sodium (136-145) mmol/L Potassium (3.5-5.1) mmol/L Chloride (98-107) mmol/L Carbon Dioxide (21-32) mmol/L Anion Gap (7-13) mEq/L BUN (7-18) mg/dL Creatinine (0.70-1.30) mg/dL Est Cr Clr Drug Dosing mL/min Estimated GFR (MDRD) BUN/Creatinine Ratio (No establ ref range) Glucose (74-99) mg/dL Lactic Acid (0.4-2.0) mmol/L Calcium (8.5-10.1) mg/dL Total Bilirubin (0.2-1.0) mg/dL AST (15-37) U/L ALT (16-63) U/L Alkaline Phosphatase (46-116) U/L Total Protein (6.4-8.2) g/dL Albumin (3.4-5.0) g/dL Globulin Albumin/Globulin Ratio Urine Color Yellow (YELLOW) Urine Appearance Slightly cloudy (CLEAR) Urine pH 6.5 (5.0-9.0) Ur Specific [place] >= 1.030 (1.005-1.030) Urine Protein Negative (NEGATIVE) Urine Glucose (UA) Negative (NEGATIVE) Urine Ketones Negative (NEGATIVE) Urine Occult Blood Negative (NEGATIVE) Urine Nitrite Negative (NEGATIVE) Urine Bilirubin Negative (NEGATIVE) Urine Urobilinogen 1.0 (0.2-1.0) mg/dL Ur Leukocyte Esterase Negative (NEGATIVE) Departure - Departure Time of Disposition: 20:25 Disposition: Home, Self-Care 01 Condition: Good Clinical Impression: Abdominal pain Qualifiers: Abdominal location: right lower quadrant Qualified Code(s): R10.31 - Right lower quadrant pain - Discharge Information *PRESCRIPTION DRUG MONITORING PROGRAM REVIEWED*: No *COPY OF PRESCRIPTION DRUG MONITORING REPORT IN PATIENT TASHI: No Instructions: Constipation, Adult, [id number], Abdominal Pain, Adult, Easy-to -Read Forms: ED Department Discharge Additional Instructions: light diet bland low acid no caffeine increase fruit fiber follow up if symptoms worsen Sepsis Event Note - Evaluation Sepsis Screening Result: No Definite Risk - Focused Exam Vital Signs: Vital Signs Temp Pulse Resp BP Pulse Ox 12/27/19 18:55 97.8 F 80 18 125/62 98 Date Exam was Performed: 12/27/19 Time Exam was Performed: 20:39 - My Orders Last 24 Hours: My Active Orders 12/27/19 19:23 Abdomen 2V AP Flat Upright [CR] Urgent - Assessment/Plan Last 24 Hours: My Active Orders 12/27/19 19:23 Abdomen 2V AP Flat Upright [CR] Urgent
== END 2019-12-27 20:50 | disposition home or self-care (01) ==
LOC: DL.ED 18:41
DX: R10.31 Right lower quadrant pain (principal); Z91.030 Bee allergy status; F17.210 Nicotine dependence, cigarettes, uncomplicated; Z88.5 Allergy status to narcotic agent
CPT/HCPCS: 36415; 74019; 80053; 81003; 83605; 85025; 99284-25

== ENCOUNTER 2020-01-14 13:57 | Emergency (ER) | payer BC ==
--- NOTE | 2020-01-14 14:09 | EDM.PDOC ---
Scribed by Petra Lux 01/14/20 [id number] for Chuck Maldonado MD ED HPI GENERAL MEDICAL PROBLEM - General Chief Complaint: Upper Extremity Injury/Pain Stated Complaint: CUT FINGER RT HAND Time Seen by Provider: 01/14/20 14:02 Source of Information: Reports: Patient, RN, RN Notes Reviewed History Limitations: Reports: No Limitations - History of Present Illness INITIAL COMMENTS - FREE TEXT/NARRATIVE: Patient presents to ER via POV stating that he was slicing potatoes with a slicer for scalloped potatoes when he cut his finger. No other injury. Tetanus is up to date. Denies cough, chest pain, shortness of breath, sore throat, runny nose, recent travel, or any exposures to confirmed or suspected Covid-19 cases. Onset: Today Duration: Constant Location: Reports: Upper Extremity, Right Quality: Reports: Ache Severity: Moderate Improves with: Reports: None Worsens with: Reports: None Associated Symptoms: Reports: No Other Symptoms - Related Data Allergies Allergy/AdvReac Type Severity Reaction Status Date / Time Bleach (Sodium Hypochlorite) Allergy Cannot Verified 01/14/20 14:04 Remember hydrocodone Allergy Nausea Verified 01/14/20 14:04 venom-honey bee Allergy Anaphylactic Verified 01/14/20 14:04 [bee venom (honey bee)] Shock Home Meds: Home Meds buPROPion HCL [Bupropion HCl Sr] 100 mg PO TID 01/14/20 [History] Past Medical History - Past Health History Medical/Surgical History: Denies Medical/Surgical History HEENT History: Reports: None Cardiovascular History: Reports: Other (See Below) Other Cardiovascular History: fluid around heart Respiratory History: Reports: Other (See Below) Other Respiratory History: pleurisy hx Gastrointestinal History: Reports: Gastritis, GERD Genitourinary History: Reports: None Musculoskeletal History: Reports: Fracture Other Musculoskeletal History: right knee pain, chronic Neurological History: Reports: Concussion, Seizure Psychiatric History: Reports: Anxiety, Depression Endocrine/Metabolic History: Reports: Obesity/BMI 30+, Other (See Below) Other Endocrine/Metabolic History: alopecia Hematologic History: Reports: None Immunologic History: Reports: None Oncologic (Cancer) History: Reports: None Dermatologic History: Reports: Other (See Below) Other Dermatologic History: alopecia - Infectious Disease History Infectious Disease History: Reports: None - Past Surgical History Head Surgeries/Procedures: Reports: None HEENT Surgical History: Reports: Tonsillectomy GI Surgical History: Reports: None Male Surgical History: Reports: None Neurological Surgical History: Reports: None Musculoskeletal Surgical History: Reports: None Social & Family History - Family History Family Medical History: Noncontributory - Caffeine Use Caffeine Use: Reports: Coffee, Energy Drinks, Soda, Tea Caffeine Use Comment: states occassional usage - Living Situation & Occupation Living situation: Reports: Single, with Family Occupation: Student Review of Systems - Review of Systems Review Of Systems: Comprehensive ROS is negative, except as noted in HPI. ED EXAM, GENERAL - Physical Exam Exam: See Below Exam Limited By: No Limitations General Appearance: Alert, WD/WN, No Apparent Distress Respiratory/Chest: No Respiratory Distress Cardiovascular: Normal Peripheral Pulses Extremities: Normal Range of Motion, Normal Capillary Refill, Other (Rt thumb pad 1cm diameter abrasion, soft tissue avulsion) Neurological: Alert, Oriented Psychiatric: Normal Mood Skin Exam: Warm, Dry Course - Orders/Labs/Meds Orders: Active Orders 24 hr Category Date Time Status Wound Care [RC] ONETIME Care 01/14/20 14:04 Ordered Departure - Departure Time of Disposition: 14:05 Disposition: Home, Self-Care 01 Condition: Good Clinical Impression: Soft tissue avulsion, Abrasion of right thumb, initial encounter - Discharge Information *PRESCRIPTION DRUG MONITORING PROGRAM REVIEWED*: Not Applicable *COPY OF PRESCRIPTION DRUG MONITORING REPORT IN PATIENT TASHI: Not Applicable Instructions: Deep Skin Avulsion Forms: ED Department Discharge Additional Instructions: Do not remove dressing for 24 hours, then change once daily until healed. Follow up in clinic if needed. - My Orders Last 24 Hours: My Active Orders 01/14/20 14:04 Wound Care [RC] ONETIME - Assessment/Plan Last 24 Hours: My Active Orders 01/14/20 14:04 Wound Care [RC] ONETIME I have read and agree with the documentation that has been completed regarding this visit. By signing this record, I attest that the documentation was completed in my physical presence and is an accurate record of the encounter.
== END 2020-01-14 14:14 | disposition home or self-care (01) ==
LOC: DL.ED 13:57
CPT/HCPCS: 99282

== ENCOUNTER 2020-03-13 23:05 | Emergency (ER) | payer BC ==
[2020-03-13] MEDS ORDERED: Bacitracin/Polymyxin B Ophth Oint 3.5 GM Tube EYERT ONE (23:06)
[2020-03-13 23:29] VITALS: BP 128/68; PULSE 83
[2020-03-13] MEDS ORDERED: Fluorescein 1 MG Ophth Strip EYERT ONE (23:44)
[2020-03-13] MEDS ORDERED: Tetracaine HCl/PF 0.5% 4 ML Bottle EYERT ONE (23:45)
--- NOTE | 2020-03-13 23:56 | EDM.PDOC ---
ED HPI GENERAL MEDICAL PROBLEM - General Chief Complaint: Eye Problems Stated Complaint: SOMETHING WRONG WITH EYE Time Seen by Provider: 03/13/20 23:49 Source of Information: Reports: Patient, RN History Limitations: Reports: No Limitations - History of Present Illness INITIAL COMMENTS - FREE TEXT/NARRATIVE: Scratched by [age] year old with finger to his right eye 4 hours prior. , painful burning sensation, sensitive to light. Right Eye Pain Score (Numeric/FACES): 6 - Related Data Allergies Allergy/AdvReac Type Severity Reaction Status Date / Time Bleach (Sodium Hypochlorite) Allergy Cannot Verified 01/14/20 14:04 Remember hydrocodone Allergy Nausea Verified 01/14/20 14:04 venom-honey bee Allergy Anaphylactic Verified 01/14/20 14:04 [bee venom (honey bee)] Shock Home Meds: Home Meds buPROPion HCL [Bupropion HCl Sr] 100 mg PO TID 01/14/20 [History] Past Medical History - Past Health History Medical/Surgical History: Denies Medical/Surgical History HEENT History: Reports: None Cardiovascular History: Reports: Other (See Below) Other Cardiovascular History: fluid around heart Respiratory History: Reports: Other (See Below) Other Respiratory History: pleurisy hx Gastrointestinal History: Reports: Gastritis, GERD Genitourinary History: Reports: None Musculoskeletal History: Reports: Fracture Other Musculoskeletal History: right knee pain, chronic Neurological History: Reports: Concussion, Seizure Psychiatric History: Reports: Anxiety, Depression Endocrine/Metabolic History: Reports: Obesity/BMI 30+, Other (See Below) Other Endocrine/Metabolic History: alopecia Hematologic History: Reports: None Immunologic History: Reports: None Oncologic (Cancer) History: Reports: None Dermatologic History: Reports: Other (See Below) Other Dermatologic History: alopecia - Infectious Disease History Infectious Disease History: Reports: None - Past Surgical History Head Surgeries/Procedures: Reports: None HEENT Surgical History: Reports: Tonsillectomy GI Surgical History: Reports: None Male Surgical History: Reports: None Neurological Surgical History: Reports: None Musculoskeletal Surgical History: Reports: None Social & Family History - Family History Family Medical History: Noncontributory - Tobacco Use Smoking Status *Q: Current Every Day Smoker Years of Tobacco use: 8 Packs/Tins Daily: 1 - Caffeine Use Caffeine Use: Reports: Soda Caffeine Use Comment: states occassional usage - Alcohol Use Date of Last Drink: 03/06/20 - Recreational Drug Use Recreational Drug Use: Yes Drug Use in Last 12 Months: Yes Recreational Drug Type: Reports: Marijuana/Hashish Recreational Drug Use Frequency: Rarely - Living Situation & Occupation Living situation: Reports: Single, with Family Occupation: Student ED ROS GENERAL - Review of Systems Review Of Systems: Comprehensive ROS is negative, except as noted in HPI. ED EXAM GENERAL W FULL EYE - Physical Exam Exam: See Below Exam Limited By: No Limitations General Appearance: Alert, Mild Distress Eye Exam: Bilateral Eye: EOMI Visual Acuity (R) 20/: 40 Visual Acuity (L) 20/: 50 With Correction: No Eyelids: Bilateral: Normal Appearance Conjunctiva & Sclera: Right: Injected Cornea Exam: Right: Corneal Abrasion (small 6 o'clock position), Examined with Flourescein Extraocular Movements: Bilateral: Intact Pupils: Normal Accommodation Pupillary Size: Bilateral: 4 mm Ears: Hearing Grossly Normal Respiratory/Chest: Normal Breath Sounds Neurological: Alert, Oriented, Normal Cognition Skin Exam: Warm, Dry, Intact Course - Vital Signs Last Recorded V/S: Last Vital Signs Temp 98.1 F 03/13/20 23:26 Pulse 83 03/13/20 23:26 Resp 17 03/13/20 23:26 BP 128/68 03/13/20 23:26 Pulse Ox 100 03/13/20 23:26 - Orders/Labs/Meds Meds: Medications Discontinued Medications Generic Name Dose Route Start Last Admin Trade Name Corkyq PRN Reason Stop Dose Admin Bacitracin/Polymyxin B Sulfate Confirm 03/14/20 00:06 03/14/20 00:13 Polysporin Ophth Oint Administered 03/14/20 00:07 Not Given Dose 3.5 gm .ROUTE .STK-MED ONE Fluorescein Sodium 1 mg 03/13/20 23:44 03/13/20 23:50 Ful-Felicia EYERT 03/13/20 23:45 1 mg ONETIME ONE Administration Tetracaine HCl 1 ml 03/13/20 23:45 03/13/20 23:50 Tetracaine 0.5% Steri-Unit Ariela EYERT 03/13/20 23:46 5 drop ASDIRECTED ONE Administration Departure - Departure Time of Disposition: 00:04 Disposition: Home, Self-Care 01 Condition: Good Clinical Impression: Corneal abrasion Qualifiers: Encounter type: initial encounter Laterality: right Qualified Code(s): S05.01XA - Injury of conjunctiva and corneal abrasion without foreign body, right eye, initial encounter - Discharge Information *PRESCRIPTION DRUG MONITORING PROGRAM REVIEWED*: No Instructions: Corneal Abrasion Referrals: PCP,None [Primary Care Provider] - Forms: ED Department Discharge Additional Instructions: dark glasses for comfort tylenol 650mg or ibuprofen 600mg, alternate every 4 hours as needed cool pack to eye if desired for comfort polymixin B eye ointment thin layer to right eye 3 times daily if not improving,, change in vision, follow up with eye doctor Sepsis Event Note (ED) - Evaluation Sepsis Screening Result: No Definite Risk - Focused Exam Vital Signs: Vital Signs Temp Pulse Resp BP Pulse Ox 03/13/20 23:26 98.1 F 83 17 128/68 100
[2020-03-14] MEDS ORDERED: Bacitracin/Polymyxin B Ophth Oint 3.5 GM Tube ONE (00:06)
== END 2020-03-14 00:11 | disposition home or self-care (01) ==
LOC: DL.ED 23:05
DX: S05.01XA Injury of conjunctiva and corneal abrasion without foreign body, right eye, initial encounter (principal); F41.9 Anxiety disorder, unspecified; F32.9 Major depressive disorder, single episode, unspecified; E66.9 Obesity, unspecified; F17.210 Nicotine dependence, cigarettes, uncomplicated; Z68.36 Body mass index [BMI] 36.0-36.9, adult; Z91.09 Other allergy status, other than to drugs and biological substances; Z91.030 Bee allergy status; Z88.5 Allergy status to narcotic agent; W22.8XXA Striking against or struck by other objects, initial encounter
CPT/HCPCS: 99283; A9270

== ENCOUNTER 2020-08-25 23:13 | Emergency (ER) | payer BC ==
[2020-08-25 23:22] VITALS: BP 139/82; PULSE 84
--- NOTE | 2020-08-25 23:34 | EDM.PDOC ---
ED HPI GENERAL MEDICAL PROBLEM - General Chief Complaint: Chest Pain Stated Complaint: CHEST PAIN Time Seen by Provider: 08/25/20 23:31 Source of Information: Reports: Patient History Limitations: Reports: No Limitations - History of Present Illness INITIAL COMMENTS - FREE TEXT/NARRATIVE: few hours h/o mid sternal sharp pain on-off, denies stress, only ate some home made taco chicken but not spicy or greasy since on diet. Middle Chest Pain Score (Numeric/FACES): 4 - Related Data Allergies Allergy/AdvReac Type Severity Reaction Status Date / Time Bleach (Sodium Hypochlorite) Allergy Cannot Verified 01/14/20 14:04 Remember hydrocodone Allergy Nausea Verified 01/14/20 14:04 venom-honey bee Allergy Anaphylactic Verified 01/14/20 14:04 [bee venom (honey bee)] Shock Home Meds: Home Meds buPROPion HCL [Bupropion HCl Sr] 100 mg PO TID 01/14/20 [History] Past Medical History - Past Health History Medical/Surgical History: Denies Medical/Surgical History HEENT History: Reports: None Cardiovascular History: Reports: Other (See Below) Other Cardiovascular History: fluid around heart Respiratory History: Reports: Other (See Below) Other Respiratory History: pleurisy hx Gastrointestinal History: Reports: Gastritis, GERD Genitourinary History: Reports: None Musculoskeletal History: Reports: Fracture Other Musculoskeletal History: right knee pain, chronic Neurological History: Reports: Concussion, Seizure Psychiatric History: Reports: Anxiety, Depression Endocrine/Metabolic History: Reports: Obesity/BMI 30+, Other (See Below) Other Endocrine/Metabolic History: alopecia Hematologic History: Reports: None Immunologic History: Reports: None Oncologic (Cancer) History: Reports: None Dermatologic History: Reports: Other (See Below) Other Dermatologic History: alopecia - Infectious Disease History Infectious Disease History: Reports: None - Past Surgical History Head Surgeries/Procedures: Reports: None HEENT Surgical History: Reports: Tonsillectomy GI Surgical History: Reports: None Male Surgical History: Reports: None Neurological Surgical History: Reports: None Musculoskeletal Surgical History: Reports: None Social & Family History - Family History Family Medical History: No Pertinent Family History - Caffeine Use Caffeine Use: Reports: Soda Caffeine Use Comment: states occassional usage - Living Situation & Occupation Living situation: Reports: Single, with Family Occupation: Student ED ROS GENERAL - Review of Systems Review Of Systems: Comprehensive ROS is negative, except as noted in HPI. ED EXAM, GENERAL - Physical Exam Exam: See Below Exam Limited By: No Limitations General Appearance: Alert, WD/WN, Mild Distress, Other (discomofrt) Eye Exam: Bilateral Eye: PERRL (pupils ER @ 4mm) Ears: Hearing Grossly Normal Throat/Mouth: Normal Voice, No Airway Compromise Head: Atraumatic Neck: Non-Tender, Full Range of Motion Respiratory/Chest: No Respiratory Distress Cardiovascular: Regular Rate, Rhythm GI/Abdominal: Soft, Non-Tender (Male) Exam: Deferred Rectal (Males) Exam: Deferred Neurological: Alert, Oriented, Normal Cognition, Normal Gait, No Motor/Sensory Deficits Psychiatric: Flat Affect Skin Exam: Warm, Dry, Normal Color Lymphatic: No Adenopathy Course - Vital Signs Last Recorded V/S: Last Vital Signs Temp 36.0 C L 08/25/20 23:20 Pulse 84 08/25/20 23:20 Resp 16 08/25/20 23:20 BP 139/82 08/25/20 23:20 Pulse Ox 100 08/25/20 23:20 - Orders/Labs/Meds Orders: Active Orders 24 hr Category Date Time Status EKG 12 Lead [EKG Documentation Completion] [RC] STAT Care 08/25/20 23:26 Active Labs: Laboratory Tests 08/25/20 08/25/20 Range/Units 23:28 23:28 WBC 10.1 H (5.0-10.0) 10^3/uL RBC 5.13 (4.6-6.2) 10^6/uL Hgb 14.9 (14.0-18.0) g/dL Hct 44.3 (40.0-54.0) % MCV 86.4 (80-100) fL MCH 29.0 (27.0-34.0) pg MCHC 33.6 (33.0-35.0) g/dL Plt Count 226 (150-450) 10^3/uL Neut % (Auto) 42.8 (42.2-75.2) % Lymph % (Auto) 45.9 (20.5-50.1) % Beaver % (Auto) 8.2 H (2-8) % Eos % (Auto) 2.8 (1.0-3.0) % Baso % (Auto) 0.3 (0.0-1.0) % Sodium 141 (136-145) mmol/L Potassium 3.6 (3.5-5.1) mmol/L Chloride 103 (98-107) mmol/L Carbon Dioxide 29 (21-32) mmol/L Anion Gap 12.6 (7-13) mEq/L BUN 12 (7-18) mg/dL Creatinine 1.02 (0.70-1.30) mg/dL Est Cr Clr Drug Dosing 115.31 mL/min Estimated GFR (MDRD) > 60 BUN/Creatinine Ratio 11.8 (No establ ref range) Glucose 85 (74-99) mg/dL Calcium 9.4 (8.5-10.1) mg/dL Total Bilirubin 0.3 (0.2-1.0) mg/dL AST 23 (15-37) U/L ALT 49 (16-63) U/L Alkaline Phosphatase 77 (46-116) U/L Troponin I < 0.017 (0.000-0.056) ng/mL Total Protein 7.3 (6.4-8.2) g/dL Albumin 4.0 (3.4-5.0) g/dL Globulin 3.3 Albumin/Globulin Ratio 1.2 Meds: Medications Discontinued Medications Generic Name Dose Route Start Last Admin Trade Name Stan PRN Reason Stop Dose Admin Ketorolac Tromethamine 30 mg 08/25/20 23:36 08/25/20 23:48 Toradol IVPUSH 08/25/20 23:37 30 mg ONETIME ONE Administration - Re-Assessments/Exams Free Text/Narrative Re-Assessment/Exam: 08/26/20 00:08 results discussed with pt who states he had holter and echo done few years ago in [place] and was told holter did have some abnormality and was kept overnight but been fine since. feeling better s/p IV toradol Departure - Departure Time of Disposition: 00:13 Disposition: Home, Self-Care 01 Condition: Good Clinical Impression: Costochondral chest pain, Anterior chest wall pain Instructions: Nonspecific Chest Pain, Adult, [id number] Forms: ED Department Discharge Additional Instructions: 1) see clinic tomorrow for STRESS TEST, HOLTER MONITOR, ECHOCARDIOGRAM 2) recheck if there is any change or concern 3) try heat to sore area 4) try motrin Sepsis Event Note (ED) - Evaluation Sepsis Screening Result: No Definite Risk - Focused Exam Vital Signs: Vital Signs Temp Pulse Resp BP Pulse Ox 08/25/20 23:20 36.0 C L 84 16 139/82 100 - My Orders Last 24 Hours: My Active Orders 08/25/20 23:26 EKG 12 Lead [EKG Documentation Completion] [RC] STAT - Assessment/Plan Last 24 Hours: My Active Orders 08/25/20 23:26 EKG 12 Lead [EKG Documentation Completion] [RC] STAT
[2020-08-25] MEDS ORDERED: Ketorolac 30 MG/ML SDV IVPUSH ONE (23:36)
[2020-08-25 23:57] LABS: ANION GAP 12.6 mEq/L (7-13); CHLORIDE,CL 103 mmol/L (98-107); SODIUM,NA 141 mmol/L (136-145)
== END 2020-08-26 00:26 | disposition home or self-care (01) ==
LOC: DL.ED 23:13
DX: R07.1 Chest pain on breathing (principal); R07.89 Other chest pain; F41.9 Anxiety disorder, unspecified; F32.9 Major depressive disorder, single episode, unspecified; E66.9 Obesity, unspecified; Z90.49 Acquired absence of other specified parts of digestive tract; Z88.5 Allergy status to narcotic agent; Z91.030 Bee allergy status; Z88.8 Allergy status to other drugs, medicaments and biological substances; Z91.09 Other allergy status, other than to drugs and biological substances; Z68.37 Body mass index [BMI] 37.0-37.9, adult
CPT/HCPCS: 36415; 80053; 84484; 85025; 93005; 96374; 99283; 99285; J1885

== ENCOUNTER 2021-06-14 12:55 | Emergency (ER) | payer SELFPAY ==
[2021-06-14 13:13] VITALS: BP 107/76; PULSE 90
[2021-06-14] MEDS ORDERED: Lidocaine 1% 30 ML SDV INJECT ONE (13:21)
--- NOTE | 2021-06-14 14:01 | EDM.PDOC ---
ED HPI GENERAL MEDICAL PROBLEM - General Chief Complaint: Laceration Stated Complaint: CHAIN SAW HIT LEG Time Seen by Provider: 06/14/21 13:55 Source of Information: Reports: Patient History Limitations: Reports: No Limitations - History of Present Illness INITIAL COMMENTS - FREE TEXT/NARRATIVE: 25 y/o M c/o R knee laceation after hitting it with a chainsaw an hour ago. No significant blood loss. Pt ambulatory and drove himself to the ER. No meds, hx, allergies. Tetanus is up to date. Onset: Today, Sudden Duration: Hour(s): Location: Reports: Lower Extremity, Right right knee Pain Score (Numeric/FACES): 8 - Related Data Allergies Allergy/AdvReac Type Severity Reaction Status Date / Time Bleach (Sodium Hypochlorite) Allergy Cannot Verified 06/14/21 13:15 Remember hydrocodone Allergy Nausea Verified 06/14/21 13:15 venom-honey bee Allergy Anaphylactic Verified 06/14/21 13:15 [bee venom (honey bee)] Shock Home Meds: Home Meds . [No Known Home Meds] 06/14/21 [History] Past Medical History - Past Health History Medical/Surgical History: Denies Medical/Surgical History HEENT History: Reports: None Cardiovascular History: Reports: Other (See Below) Other Cardiovascular History: fluid around heart Respiratory History: Reports: Other (See Below) Other Respiratory History: pleurisy hx Gastrointestinal History: Reports: Gastritis, GERD Genitourinary History: Reports: None Musculoskeletal History: Reports: Fracture Other Musculoskeletal History: right knee pain, chronic Neurological History: Reports: Concussion, Seizure Psychiatric History: Reports: Anxiety, Depression Endocrine/Metabolic History: Reports: Obesity/BMI 30+, Other (See Below) Other Endocrine/Metabolic History: alopecia Hematologic History: Reports: None Immunologic History: Reports: None Oncologic (Cancer) History: Reports: None Dermatologic History: Reports: Other (See Below) Other Dermatologic History: alopecia - Infectious Disease History Infectious Disease History: Reports: None - Past Surgical History Head Surgeries/Procedures: Reports: None HEENT Surgical History: Reports: Tonsillectomy Cardiovascular Surgical History: Reports: None GI Surgical History: Reports: None Male Surgical History: Reports: None Endocrine Surgical History: Reports: None Neurological Surgical History: Reports: None Musculoskeletal Surgical History: Reports: None Dermatological Surgical History: Reports: None Social & Family History - Family History Family Medical History: No Pertinent Family History - Caffeine Use Caffeine Use: Reports: Soda Caffeine Use Comment: states occassional usage - Living Situation & Occupation Living situation: Reports: Single, with Family Occupation: Student ED ROS GENERAL - Review of Systems Review Of Systems: Comprehensive ROS is negative, except as noted in HPI. ED EXAM, SKIN/RASH Exam: See Below General Appearance: Alert Throat/Mouth: Normal Inspection, Normal Lips, Normal Teeth, Normal Gums, Normal Oropharynx, Normal Voice, No Airway Compromise Respiratory/Chest: No Respiratory Distress, Lungs Clear, Normal Breath Sounds, No Accessory Muscle Use, Chest Non-Tender Cardiovascular: Normal Peripheral Pulses, Regular Rate, Rhythm, No Edema, No Gallop, No JVD, No Murmur, No Rub Peripheral Pulses: 2+: Posterior Tibial (L), Posterior Tibial (R), Dorsalis Pedis (L), Dorsalis Pedis (R) Extremities: Other (4 cm lateral suturable laceration to the R knee. Bleeding controlled distal sensation and motor fucntion intact. ) ED SKIN PROCEDURES - Laceration/Wound Repair Right Anterior Knee Anesthetic Type: Local Local Anesthesia - Lidocaine (Xylocaine): 1% Plain Local Anesthetic Volume: 5cc Skin Prep: Saline Saline Irrigation (cc's): 50 Exploration/Debridement/Repair: Wound Explored, Minimal Debridement Closed with: Sutures Lac/Wound length In cm: 4 Suture Size: 5-0 # of Sutures: 7 Sterile Dressing Applied: Nurse Tetanus Status Addressed: Yes Complications: No Course - Vital Signs Last Recorded V/S: Last Vital Signs Temp 98.9 F 06/14/21 13:09 Pulse 90 06/14/21 13:09 Resp 20 06/14/21 13:09 BP 107/76 06/14/21 13:09 Pulse Ox 96 06/14/21 13:09 - Orders/Labs/Meds Meds: Medications Discontinued Medications Generic Name Dose Route Start Last Admin Trade Name Stan PRN Reason Stop Dose Admin Lidocaine HCl 30 ml 06/14/21 13:21 06/14/21 13:31 Lidocaine 1% 30 Ml Sdv INJECT 06/14/21 13:22 10 ml ONETIME ONE Administration Departure - Departure Time of Disposition: 13:59 Disposition: Home, Self-Care 01 Condition: Good Clinical Impression: Laceration of knee Qualifiers: Encounter type: initial encounter Laterality: right Qualified Code(s): S81.011A - Laceration without foreign body, right knee, initial encounter - Discharge Information *PRESCRIPTION DRUG MONITORING PROGRAM REVIEWED*: Not Applicable *COPY OF PRESCRIPTION DRUG MONITORING REPORT IN PATIENT TASHI: Not Applicable Instructions: Laceration Care, Adult Additional Instructions: Use tylenol and motrin for pain as needed. Leave stitches in for 10-14 days. Keep wound covered with aquaporin or triple antibiotic ointment. Sepsis Event Note (ED) - Evaluation Sepsis Screening Result: No Definite Risk - Focused Exam Vital Signs: Vital Signs Temp Pulse Resp BP Pulse Ox 06/14/21 13:09 98.9 F 90 20 107/76 96
== END 2021-06-14 14:17 | disposition home or self-care (01) ==
LOC: DL.ED 12:55
DX: S81.011A Laceration without foreign body, right knee, initial encounter (principal); E66.9 Obesity, unspecified; Z68.29 Body mass index [BMI] 29.0-29.9, adult; Z88.8 Allergy status to other drugs, medicaments and biological substances; Z88.5 Allergy status to narcotic agent; Z91.030 Bee allergy status; W29.3XXA Contact with powered garden and outdoor hand tools and machinery, initial encounter
CPT/HCPCS: 12002; 99282-25

== ENCOUNTER 2021-06-16 14:23 | Emergency (ER) | payer SELFPAY | END 2021-06-16 15:26 | disposition left against medical advice (07) | LOC: DL.ED 14:23 | DX: R20.0 Anesthesia of skin (principal); Z53.21 Procedure and treatment not carried out due to patient leaving prior to being seen by health care provider ==

== ENCOUNTER 2022-03-29 12:41 | Emergency (ER) | payer BC ==
[2022-03-29 13:03] VITALS: BP 122/92; PULSE 104
[2022-03-29] MEDS ORDERED: Sodium Chloride 0.9% 10 ML Syringe FLUSH PRN (13:27)
[2022-03-29 14:06] LABS: ANION GAP 12.1 mEq/L (7-13); CHLORIDE,CL 106 mmol/L (98-107); SODIUM,NA 142 mmol/L (136-145)
[2022-03-29 14:07] LABS: ESTIMATED GFR 98 mL/min (>=60)
[2022-03-29] MEDS: Sodium Chloride 0.9% 1,000 ML IV ONE (14:57)
== END 2022-03-29 15:00 | disposition home or self-care (01) ==
LOC: DL.ED 12:41
DX: M79.18 Myalgia, other site (principal); K21.9 Gastro-esophageal reflux disease without esophagitis
CPT/HCPCS: 36415; 80053; 80307; 84484; 85025; 93005; 93010; 99283; 99284

== ENCOUNTER 2022-09-11 00:37 | Emergency (ER) | payer BC ==
[2022-09-11 00:46] VITALS: BP 136/79; PULSE 84
[2022-09-11] MEDS ORDERED: Lidocaine 1% 20 ML MDV INJECT ONE (00:52)
[2022-09-11] MEDS ORDERED: Ondansetron 4 MG Tab.DIS PO ONE (00:52)
[2022-09-11] MEDS ORDERED: Bacitracin Oint 1 GM U/D Packet TOP ONE (00:53)
[2022-09-11] MEDS ORDERED: Diphtheria,Pertussis(Acell),Tetanus Vaccine 0.5 ML Syringe IM ONE (00:54)
[2022-09-11] MEDS ORDERED: Lidocaine 1% 10 ML MDV INJECT ONE (00:58)
== END 2022-09-11 01:43 | disposition home or self-care (01) ==
LOC: DL.ED 00:37
DX: S61.411A Laceration without foreign body of right hand, initial encounter (principal); K21.9 Gastro-esophageal reflux disease without esophagitis; E66.9 Obesity, unspecified; Z68.38 Body mass index [BMI] 38.0-38.9, adult; Z88.5 Allergy status to narcotic agent; Z91.030 Bee allergy status; Z88.8 Allergy status to other drugs, medicaments and biological substances; Z23 Encounter for immunization; W00.0XXA Fall on same level due to ice and snow, initial encounter
CPT/HCPCS: 12001; 90471; 90715; 99282; A9270

== ENCOUNTER 2022-11-29 20:58 | Emergency (ER) | payer BC ==
[2022-11-29 21:29] VITALS: BP 118/82; PULSE 95
[2022-11-29 21:57] LABS: ANION GAP 12.7 mEq/L (7-13)
== END 2022-11-29 23:12 | disposition home or self-care (01) ==
LOC: DL.ED 20:58
DX: R10.30 Lower abdominal pain, unspecified (principal); M79.604 Pain in right leg; E66.9 Obesity, unspecified; Z68.41 Body mass index [BMI] 40.0-44.9, adult; Z88.8 Allergy status to other drugs, medicaments and biological substances; Z88.5 Allergy status to narcotic agent; Z91.030 Bee allergy status; Z72.0 Tobacco use
CPT/HCPCS: 36415; 80053; 83605; 85025; 85379; 99283; 99284